=== PATIENT | female | born 1960 | race Two or more races ===

== ENCOUNTER 2020-03-18 07:22 | Emergency (ER) | payer OTHER ==
[2020-03-18 07:26] VITALS: BP 163/86
[2020-03-18] MEDS ORDERED: ACETAMINOPHEN 500 MG TAB PO ONE (10:15)
== END 2020-03-18 10:34 | disposition home or self-care (01) ==
LOC: ER 07:22 → EDBD 07:22 → ER 10:34
DX: S16.1XXA Strain of muscle, fascia and tendon at neck level, initial encounter (principal); S46.911A Strain of unspecified muscle, fascia and tendon at shoulder and upper arm level, right arm, initial encounter; S20.211A Contusion of right front wall of thorax, initial encounter; I10 Essential (primary) hypertension; V43.62XA Car passenger injured in collision with other type car in traffic accident, initial encounter; Y93.89 Activity, other specified; Y92.410 Unspecified street and highway as the place of occurrence of the external cause; Y99.8 Other external cause status
CPT/HCPCS: 71046; 72040; 73030